=== PATIENT | female | born 1980 | race Caucasian/White ===

== ENCOUNTER 2022-09-28 09:25 | Emergency (ER) | payer BC, OTHER ==
--- OUTSIDE RECORDS SUMMARY | 2022-09-28 09:29 | XMS REPORT | Continuity of Care Document ---
:1980 Author Organization [facility] t Address [address] [place] [address] Care Team Providers Name Role Phone Philippe Goins MD Primary Care Physician Arlette Nieves Attending Clinician Unavailable Lab, Adc Fam Pob I Attending Clinician Unavailable Eva Sanchez Attending Clinician EVA MURPHY Attending Clinician Unavailable Arlette Nieves Admitting Clinician Unavailable Physician, No Primary or Family Admitting Clinician Unavaila ble Payers Payer Name Policy Type Policy Number Effective Date Expiration Date S ource Problems This patient has no known problems. Allergies, Adverse Reactions, Alerts Allergy Allergy Status Severity Reaction(s) Onset Inactive Treating Comm ents Source Name Type Date Date Clinician NO KNOWN Drug Active Univers [facility]GIE [facility] Family History Family Member Diagnosis Comments Start Date Stop Date Source Maternal aunt [facility] Maternal aunt Heart disease [facility] Maternal grandmother Diabetes [facility] Maternal grandmother Heart disease [facility] Maternal grandmother Hypertension [facility] Natural mother Hypertension [facility] Natural sister Thyroid disease [facility] Social History Social Habit Start Date Stop Date Quantity Comments Source Exposure to Yes [facility]-CoV-2 [facility] (event) Branch Alcohol intake 2017-06-12 2017-06-12 Current [facility] 00:00:00 00:00:00 non-drinker of alcohol (finding) Tobacco use and 2017-05-15 2017-05-15 Smokeless tobacco [facility] exposure 00:00:00 00:00:00 non-user Sex Assigned At [birth year] [facility] 00:00:00 00:00:00 Smoking Status Start Date Stop Date Source Unknown if ever smoked [facility] Never smoked tobacco [facility] ospital Medications Ordered Filled Start Stop Current Ordering Indication Dosage Frequency Signature Comments Components Source Medication Medication Date Date Medication? Clinician (SIG) Name Name amoxicillin Yes TK 1 T PO M ethodi -pot 05-[address] clavulanate 00:00: Hospit a (AUGMENTIN) 00 l 875-125 mg per tablet sertraline Yes TK 1 T PO Me thodi (ZOLOFT) [address] 100 MG 00:00: Hospita tablet 00 l zolpidem Yes TK 1 T PO Meth kerri (AMBIEN) 10 8-[address] mg tablet 00:00: Hospita 00 l Procedures This patient has no known procedures. Plan of Care Planned Activity Planned Date Details Comments Source Future Scheduled 2022-08-20 COVID-19 VACCINE [facility] Test 15:59:25 (#1) [code = COVID-19 VACCINE (#1)] Future Scheduled 2022-08-20 Screening for [facility] Test 15:59:25 malignant neoplasm of cervix (procedure) [code = 212739401] Future Scheduled 2022-08-20 BREAST CANCER [facility] Test 15:59:25 SCREENING [code = BREAST CANCER SCREENING] Future Scheduled 2022-08-20 INFLUENZA VACCINE [facility] Test 15:59:25 [code = INFLUENZA VACCINE] Encounters Start End Encounter Admission Attending Care Care Encounter Source Date/Time Date/Time Type Type Clinicians Facility Department ID 2022-02-11 2022-02-11 Outpatient RAIN Calhoun DELORES [id number] [facility] 12:00:00 12:00:[address] [place] [address] 2020-11-20 2020-11-20 Outpatient DANE Calhoun DELORES [id number] [facility] 12:00:00 12:00:00 Arlette 84 [facility] 2020-08-09 2020-08-09 Laboratory Lab, [facility] [id number] 15:31:17 15:51:17 Only Fam Pob I Health [id number] [place] [id number] Professio [phone] [place] [address] Office Building [facility] 2020-08-09 2020-08-09 Laboratory Lab, [facility] Fam Pob I [facility] [id number] [facility] 15:31:17 15:51:17 Only Katherine [facility] [id number] ity of [place] [id number] Ever as Professio [phone] Nh dical [address] Office Building [facility] 2020-08-09 2020-08-09 Outpatient Kiersten KATHERINE [facility] [id number] [facility] 15:20:00 15:20:00 EVA ity of [facility] 2019-11-07 2019-11-07 Outpatient RAIN Calhoun DELORES [id number] [facility] 12:00:00 12:00:00 Arlette 07 [facility] Results This patient has no known results.
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
[2022-09-28] MEDS ORDERED: IBUPROFEN 200 MG TAB PO ONE (10:43)
[2022-09-28] MEDS ORDERED: CYCLOBENZAPRINE 10 MG TAB ONE (10:43)
[2022-09-28 11:07] VITALS: TEMP 97.9; O2SAT 100
[2022-09-28 11:08] VITALS: BP 120/80
== END 2022-09-28 10:47 | disposition home or self-care (01) ==
LOC: ER 09:25
DX: R51.9 Headache, unspecified (principal); S16.1XXA Strain of muscle, fascia and tendon at neck level, initial encounter; V49.49XA Driver injured in collision with other motor vehicles in traffic accident, initial encounter
CPT/HCPCS: 70450; 72125

== ENCOUNTER 2022-10-25 04:43 | Emergency (ER) | payer BC, OTHER ==
--- OUTSIDE RECORDS SUMMARY | 2022-10-25 04:46 | XMS REPORT | Continuity of Care Document ---
:[address] [facility] t Address [address] [facility] [address] [place] [address] Care Team Providers Name Role Phone Philippe Goins MD Primary Care Physician Arlette Nieves Attending Clinician Unavailable Lab, Adc Fam Pob I Attending Clinician Unavailable Naomi Sanchez Attending Clinician NAOMI MURPHY Attending Clinician Unavailable Arlette Nieves Admitting [...] Date Stop Date Source Maternal [facility] Maternal aunt Heart disease [facility] Maternal grandmother Diabetes [facility] Maternal grandmother Heart disease [facility] Maternal grandmother Hypertension [facility] Natural mother Hypertension [facility] Natural sister Thyroid disease [facility] Social History Social Habit Start Date Stop Date Quantity Comments Source Exposure to [facility] SARS-CoV-2 [facility] (event) Branch Alcohol intake 2017-06-12 2017-06-12 Current [facility] 00:00:00 00:00:00 non-drinker of alcohol (finding) Tobacco use and 2017-05-15 2017-05-15 Smokeless tobacco [facility] exposure 00:00:00 00:00:00 non-user Sex Assigned At [birth year] [facility] 00:00:00 00:00:00 Smoking Status Start Date Stop Date Source Unknown if ever smoked [facility] Never smoked tobacco [facility] ospital Medications Ordered Filled Start Stop Current Ordering Indication Dosage Frequency Signature Comments Components Source Medication Medication Date Date Medication? Clinician (SIG) Name Name amoxicillin Yes TK 1 T PO M ethodi -pot 9-[address] clavulanate 00:00: Hospit a (AUGMENTIN) 00 l 875-125 mg per tablet amoxicillin Yes TK 1 T PO M ethodi -pot 9-[address] clavulanate 00:00: Hospit a (AUGMENTIN) 00 l 875-125 mg per tablet sertraline Yes TK 1 T PO Me thodi (ZOLOFT) 8-[address] 100 MG 00:00: Hospita tablet 00 l zolpidem Yes TK 1 T PO Meth kerri (AMBIEN) 10 8-[address] mg tablet 00:00: Hospita 00 l sertraline Yes TK 1 T PO Me thodi (ZOLOFT) 8-[address] 100 MG 00:00: Hospita tablet 00 l zolpidem Yes TK 1 T PO Meth kerri (AMBIEN) 10 8-[address] mg tablet 00:00: Hospita 00 l Procedures This patient has no known procedures. Plan of Care Planned Activity Planned Date Details Comments Source Future Scheduled 2022-08-20 COVID-19 VACCINE [facility] Test 15:59:25 (#1) [code = COVID-19 VACCINE (#1)] Future Scheduled 2022-08-20 Screening for [facility] Test 15:59:25 malignant neoplasm of cervix (procedure) [code = [id number]] Future Scheduled 2022-08-20 BREAST CANCER [facility] Test 15:59:25 SCREENING [code = BREAST CANCER SCREENING] Future Scheduled 2022-08-20 INFLU[facility]ZA [facility]ACCINE [facility] 15:59:25 [code = INFLUENZA VACCINE] Future Scheduled 2022-08-20 [facility] Test 15:59:25 (#1) [code = COVID-19 VACCINE (#1)] Future Scheduled 2022-08-20 Screening for [facility] Test 15:59:25 malignant neoplasm of cervix (procedure) [code = 699475941] Future Scheduled 2022-08-20 BREAST CANCER [facility] Test 15:59:25 SCREENING [code = BREAST CANCER SCREENING] Future Scheduled 2022-08-20 INFLUENZA VACCINE [facility] Test 15:59:25 [code = INFLUENZA VACCINE] Encounters Start End Encounter Admission Attending Care Care Encounter Source Date/Time Date/Time Type Type Clinicians Facility Department ID 2022-02-11 2022-02-11 Outpatient MACARENA NievesDANE [id number] [facility] 12:00:00 12:00:00 Arlette 26 [facility] 2020-11-20 2020-11-20 Outpatient MACARENA Nieves [facility] DELORES [id number] [facility] 12:00:00 12:00:00 Arlette 84 [facility] 2020-08-09 2020-08-09 Laboratory Lab, [facility] [id number] 15:31:17 15:51:17 Only Fam Pob I Health [id number] [place] [id number] Professio [phone] [place] [address] Office Building [facility] 2020-08-09 2020-08-09 Laboratory Lab, [facility] Fam Pob I [facility] [id number] [facility] 15:31:17 15:51:17 Only Green, Na[facility] Health [id number] ity of [place] [id number] Ever as Professio [phone] [address] Office Building One 2020-08-09 2020-08-09 Outpatient R KATHERINE [facility] [id number] [facility] 15:20:00 15:20:00 NAOMI ity [facility] 2019-11-07 2019-11-07 Outpatient EL RAIN Nieves DELORES [id number] [facility] 12:00:00 12:00:00 Arlette 07 [facility] Results This patient has no known results.
[2022-10-25 05:53] LABS: Absolute Lymphocytes (CBC) 1.8 K/uL (0.7-4.9); Hematocrit 34.9 % (36.0-45.0); MCV 86.4 fL (80-100); MPV 6.7 fL (7.6-11.3); RBC Red Blood Cell Count 4.04 M/uL (3.86-4.86)
[2022-10-25 06:11] LABS: Albumin 4.2 g/dL (3.4-5.0); Bilirubin Total 0.5 mg/dL (0.2-1.0); Potassium 3.6 mmol/L (3.5-5.1); Protein, Total 7.7 g/dL (6.4-8.2)
--- NOTE | 2022-10-25 06:32 | ER ---
Nurse's Notes [facility] Name: Kelly Mendieta Age: 42 yrs Sex: Female : 1980 Arrival Date: 10/25/2022 Time: 04:45 Bed 16 Private MD: Diagnosis: Gastro-esophageal reflux disease without esophagitis Presentation: 10/25 04:48 Chief complaint: Patient states: I woke up at around 2:30 with pain between my shoulder kd3 blades that goes off mostly to the right side. I started to vomit. I am not sure if the two things are related. I no longer feel nauseous but the pain on the right shoulder blade is about a 4/10 and dull achy right now and about a 7/10 and sharp at its worst. Coronavirus screen: Vaccine status: Patient reports receiving the 2nd dose of the covid vaccine. Ebola Screen: No symptoms or risks identified at this time. Initial Sepsis Screen: Does the patient meet any 2 criteria? No. Patient's initial sepsis screen is negative. Does the patient have a suspected source of infection? No. Patient's initial sepsis screen is negative. Risk Assessment: Do you want to hurt yourself or someone else? Patient reports no desire to harm self or others. Onset of symptoms was October 25, 2022. 04:48 Method Of Arrival: Ambulatory kd3 04:48 Acuity: JESSE 3 kd3 Triage Assessment: 04:51 General: Appears uncomfortable, Behavior is calm, cooperative. Pain: Complains of pain kd3 in right scapular area and thoracic area. Neuro: Level of Consciousness is awake, alert, obeys commands, Oriented to person, place, time, situation. GI: Reports nausea, vomiting. 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 - Social history:: Smoking status: Patient denies any tobacco usage or history of. Screenin:51 [facility] ED Fall Risk Assessment (Adult) History of falling in the last 3 months, aa9 including since admission No falls in past 3 months (0 pts) Confusion or Disorientation No (0 pts) Intoxicated or Sedated No (0 pts) Impaired Gait No (0 pts) Mobility Assist Device Used No (0 pt) Altered Elimination No (0 pt) Score/Fall Risk Level 0 - 2 = Low Risk Oriented to surroundings, Maintained a safe environment. Abuse screen: Denies threats or abuse. Denies injuries from another. Nutritional screening: Has had N/V for 3 or more days. Tuberculosis screening: No symptoms or risk factors identified. Assessment: 05:00 Reassessment: Patient appears in no apparent distress at this time. Patient is alert, aa9 oriented x 3, equal unlabored respirations, skin warm/dry/pink. GI: Reports nausea, vomiting. 05:00 General: Appears in no apparent distress. comfortable, Behavior is calm, cooperative. aa9 Cardiovascular: Patient's skin is warm and dry. Respiratory: Airway is patent Respiratory effort is even, unlabored. 06:45 Reassessment: Patient appears in no apparent distress at this time. Patient and/or aa9 family updated on plan of care and expected duration. Pain level reassessed. Patient is alert, oriented x 3, equal unlabored respirations, skin warm/dry/pink. Vital Signs: 04:48 BP 114 / 58; Pulse 75; Resp 19; Temp 97.9; Pulse Ox 100% on R/A; Weight 72.57 kg; kd3 Height 5 ft. 8 in. (172.72 cm); 04:52 Pain 4/10; kd3 06:44 BP 115 / 73; Pulse 71; Resp 16; Pulse Ox 99% on R/A; aa9 04:48 Body Mass Index 24.33 (72.57 kg, 172.72 cm) kd3 ED Course: 04:45 Patient arrived in ED. ag3 04:51 Triage completed. kd3 04:55 Arm band placed on left wrist. kd3 04:56 Lakshmi Dumas, LOLY is Primary Nurse. aa9 05:29 Lauri Lopez MD is Attending Physician. sp3 05:47 Lipase Sent. aa9 05:47 CBC with Diff Sent. aa9 05:50 CMP Sent. aa9 05:57 Chest Single View XRAY In Process Unspecified. EDMS 06:44 No provider procedures requiring assistance completed. Patient did not have IV access aa9 during this emergency room visit. 06:45 Patient has correct armband on for positive identification. Bed in low position. Side aa9 rails up X2. Adult w/ patient. Administered Medications: No medications were administered Medication: 06:44 VIS not applicable for this client. aa9 Outcome: 06:31 Discharge ordered by . sp3 06:44 Discharged to home ambulatory, with family. aa9 06:44 Condition: stable 06:44 Discharge instructions given to patient, Instructed on discharge instructions, follow up and referral plans. Demonstrated understanding of instructions, follow-up care. 06:45 Patient left the ED. aa9 Signatures: Dispatcher [employer] EDMariajose Rubin 3 Lauri Lopez MD MD sp3 María Go RN RN kd3 Lakshmi Dumas, LOLY RN aa9 Corrections: (The following items were deleted from the chart) 04:55 04:48 Chief complaint: Patient states: I woke up at around 3:30 with right shoulder kd3 pain and I couldn't stop vomiting. kd3
--- NOTE | 2022-10-25 06:32 | EDPHYS ---
Physician Documentation [facility] Name: Kelly Mendieta Age: 42 yrs Sex: Female : 1980 Arrival Date: 10/25/2022 Time: 04:45 Bed 16 Private MD: ED Physician Lauri Lopez HPI: 10/25 05:58 This 42 yrs old Female presents to ER via Ambulatory with complaints of Shoulder Pain, sp3 Vomiting. 05:58 42-year-old female with no significant past medical history presents with chief sp3 complaint right. Shoulder/scapula pain started after episode of nausea and gastritis yesterday evening. Patient states that she had some fatty/spicy food and had to take Rolaids for her symptoms which are now resolved however she is has some mild pain emanating from her scapular area for which she is concerned and presents to the ED. One of her concerns is possible biliary pathology including cholecystitis. She denies any difficulty breathing, anterior chest pain, prior cardiac history, left-sided chest pain, left arm pain, left jaw pain, epigastric pain, continued nausea, syncope, near syncope, fever, URI symptoms, any other aspect of ROS at this time.. 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 - Social history:: Smoking status: Patient denies any tobacco usage or history of. ROS: 06:00 Constitutional: Negative for fever, chills, and weight loss, Eyes: Negative for injury, sp3 pain, redness, and discharge, ENT: Negative for injury, pain, and discharge, Neck: Negative for injury, pain, and swelling, Cardiovascular: Negative for chest pain, palpitations, and edema, Respiratory: Negative for shortness of breath, cough, wheezing, and pleuritic chest pain, Back: Negative for injury and pain, MS/Extremity: Negative for injury and deformity, Skin: Negative for injury, rash, and discoloration, Neuro: Negative for headache, weakness, numbness, tingling, and seizure, Psych: Negative for depression, anxiety, suicide ideation, homicidal ideation, and hallucinations, Allergy/Immunology: Negative for hives, rash, and allergies, Endocrine: Negative for neck swelling, polydipsia, polyuria, polyphagia, and marked weight changes, Hematologic/Lymphatic: Negative for swollen nodes, abnormal bleeding, and unusual bruising. 06:00 All other systems are negative. Exam: 06:00 Constitutional: This is a well developed, well nourished patient who is awake, alert, sp3 and in no acute distress. Head/Face: Normocephalic, atraumatic. Eyes: Pupils equal round and reactive to light, extra-ocular motions intact. Lids and lashes normal. Conjunctiva and sclera are non-icteric and not injected. Cornea within normal limits. Periorbital areas with no swelling, redness, or edema. Neck: Trachea midline, no thyromegaly or masses palpated, and no cervical lymphadenopathy. Supple, full range of motion without nuchal rigidity, or vertebral point tenderness. No Meningismus. Chest/axilla: Normal chest wall appearance and motion. Nontender with no deformity. No lesions are appreciated. Cardiovascular: Regular rate and rhythm with a normal S1 and S2. No gallops, murmurs, or rubs. Normal PMI, no JVD. No pulse deficits. Respiratory: Lungs have equal breath sounds bilaterally, clear to auscultation and percussion. No rales, rhonchi or wheezes noted. No increased work of breathing, no retractions or nasal flaring. Abdomen/GI: Soft, non-tender, with normal bowel sounds. No distension or tympany. No guarding or rebound. No evidence of tenderness throughout. Back: No spinal tenderness. No costovertebral tenderness. Full range of motion. Skin: Warm, dry with normal turgor. Normal color with no rashes, no lesions, and no evidence of cellulitis. MS/ Extremity: Pulses equal, no cyanosis. Neurovascular intact. Full, normal range of motion. Neuro: Awake and alert, GCS 15, oriented to person, place, time, and situation. Cranial nerves II-XII grossly intact. Motor strength 5/5 in all extremities. Sensory grossly intact. Cerebellar exam normal. Normal gait. Psych: Awake, alert, with orientation to person, place and time. Behavior, mood, and affect are within normal limits. 06:28 ECG was reviewed by the Attending Physician. EKG demonstrates normal sinus rhythm at 70 sp3 bpm with normal intervals, normal QRS, normal axis with poor R wave progression in precordial leads V3 normal ST/T-segment without evidence of acute ischemia. Vital Signs: 04:48 BP 114 / 58; Pulse 75; Resp 19; Temp 97.9; Pulse Ox 100% on R/A; Weight 72.57 kg; kd3 Height 5 ft. 8 in. (172.72 cm); 04:52 Pain 4/10; kd3 06:44 BP 115 / 73; Pulse 71; Resp 16; Pulse Ox 99% on R/A; aa9 04:48 Body Mass Index 24.33 (72.57 kg, 172.72 cm) kd3 MDM: 05:58 Patient medically screened. sp3 06:04 Data reviewed: vital signs, nurses notes, lab test result(s), radiologic studies. ED sp3 course: 42-year-old female with right scapular pain. Differential diagnosis is broad but I do not believe includes any critical pathologies. Consider gastritis/periesophageal pain, referred pain from biliary disease, musculoskeletal pain, among others. Clinically I am not highly suspicious for acute coronary syndrome, pulmonary embolism, aortic dissection or aneurysm, pneumonia, pneumothorax, or any other concerning findings. Work-up will include x-ray and routine labs including lipase and biliary function test. Again I do not believe this is cardiac in origin given presentation and history.. 06:30 ED course: I reviewed chest x-ray imaging myself which demonstrates no acute sp3 abnormality, as well as EKG and laboratory values which are also normal. I will reassure patient and discharge her to PCP follow-up as needed.. 10/25 05:39 Order name: CBC with Diff; Complete Time: 06:29 aa9 10/25 05:39 Order name: Lipase; Complete Time: 06:29 aa9 10/25 05:39 Order name: Chest Single View XRAY aa9 10/25 05:50 Order name: CMP sp3 10/25 05:54 Order name: Comprehensive Metabolic Panel; Complete Time: 06:29 EDMS 10/25 06:06 Order name: EKG - Nurse/Tech; Complete Time: 06:37 sp3 Administered Medications: No medications were administered Disposition Summary: 10/25/22 06:31 Discharge Ordered Location: Home sp3 Condition: Stable sp3 Diagnosis - Gastro-esophageal reflux disease without esophagitis sp3 Followup: sp3 - With: Private Physician - When: Upon discharge from the Emergency Department - Reason: Continuance of care Discharge Instructions: - Discharge Summary Sheet sp3 - Indigestion sp3 Forms: - Medication Reconciliation Form sp3 - Thank You Letter sp3 - Antibiotic Education sp3 - Prescription Opioid Use sp3 Signatures: Dispatcher [employer] EDLauri Montez MD MD sp3 María Go RN RN kd3
[2022-10-25 06:50] VITALS: TEMP 97.9
[2022-10-25 06:52] VITALS: BP 115/73; O2SAT 99
--- NOTE | 2022-10-25 11:32 | RAD REPORT ---
EXAM DESCRIPTION: RAD - Chest Single View - 10/25/2022 5:55 am CLINICAL HISTORY: 42 years Female PAIN COMPARISON: None FINDINGS: Lung volumes adequate. Cardiac silhouette is normal. No pneumothorax. No large pleural effusion. No focal consolidation. No acute bony finding. IMPRESSION: No acute cardiopulmonary findings. Electronically signed by: Tresa Otero MD 10/25/2022 6:07 AM DRUG ABUSE TREATMENT SPECIALIST Due to temporary technical issues with the PACS/Fluency reporting system, reports are being signed by the in house radiologists without review as a courtesy to insure prompt reporting. The interpreting radiologist is fully responsible for the content of the report.
--- NOTE | 2022-10-25 12:49 | EKG ---
Test Date: 2022-10-25 Test Time: 06:20:39 Health Plan Specialist: GARETH MEASUREMENT RESULTS: Intervals: Rate: 70 IA: 128 QRSD: 98 QT: 450 QTc: 486 [place]: P: 30 IA: 128 QRS: 60 T: 53 INTERPRETIVE STATEMENTS: Normal sinus rhythm Prolonged QT Abnormal ECG No previous ECG available for comparison Electronically Signed On 10-25-22 12:48:42 MATERIALS AND CORROSION ENGINEER by Gera House
== END 2022-10-25 06:45 | disposition home or self-care (01) ==
LOC: ER 04:43
DX: K21.9 Gastro-esophageal reflux disease without esophagitis (principal)
CPT/HCPCS: 36415; 71045; 80053; 83690; 85025; 93005; 99283

== ENCOUNTER 2024-12-31 19:14 | Emergency (ER) | payer BC ==
[2024-12-31 20:30] LABS: Absolute Basophils 0.1 K/uL (0-0.5); Absolute Lymphocytes (CBC) 1.6 K/uL (0.7-4.9); Absolute Monocytes 0.6 K/uL (0.1-1.3); Absolute Neutrophil 11.4 K/uL (1.8-8.0); Basophils % 0.4 % (0-1.3); Eosinophils % 0.2 % (0-4.4); Hematocrit 40.9 % (36.0-45.0); Hemoglobin 14.5 g/dL (12.0-15.0); Lymphocytes % 11.9 % (15.3-44.8); MCH 30.7 pg (27.0-35.0); MCHC 35.5 g/dL (32.0-36.0); MCV 86.5 fL (80-100); MPV 7.2 fL (7.6-11.3); Monocytes % 4.7 % (3.3-12.3); Neutrophils % 82.8 % (41.7-73.7); Platelets 323 thou/uL (152-406); RBC Red Blood Cell Count 4.73 M/uL (3.86-4.86); Red Cell Distribution Width 13.2 % (12.1-15.2)
[2024-12-31] MEDS ORDERED: ONDANSETRON 4 MG/2 ML VIAL ONE (20:42)
[2024-12-31] MEDS ORDERED: FAMOTIDINE 20 MG/2 ML VIAL IV ONE (20:42)
[2024-12-31] MEDS ORDERED: NA CHLORIDE 0.9% 1,000 ML ONE (20:42)
[2024-12-31 20:47] LABS: Albumin 4.5 g/dL (3.4-5.0); Albumin/Globulin Ratio 1.1 (1.1-1.8); Anion Gap 15.7 mEq/L (5.0-15.0); Bilirubin Total 0.9 mg/dL (0.2-1.0); Globulin 4.2 g/dL (2.3-3.5); Potassium 3.7 mEq/L (3.5-5.1); Protein, Total 8.7 g/dL (6.4-8.2)
--- NOTE | 2024-12-31 21:32 | EDPHYS ---
Physician Documentation [facility] Name: Kelly Mendieta Age: 44 yrs Sex: Female : 1980 Arrival Date: 12/31/2024 Time: 19:14 Bed 14 Private MD: ED Physician Vel Tucker HPI: 12/31 21:49 This 44 yrs old Female presents to ER via Ambulatory with complaints of Nausea/Vomiting.kb 21:49 Patient is a 44-year-old female who presents for nausea and vomiting that started kb yesterday. States she has been unable to tolerate anything by mouth. States she took a shot of semaglutide for the first time in symptoms started after that. Denies diarrhea, abdominal pain, fever. 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 - Infectious Disease History:: Denies. - Social history:: Smoking status: Patient denies any tobacco usage or history of. ROS: 21:48 Constitutional: As per HPI kb Exam: 21:48 Constitutional: This is a well developed, well nourished patient who is awake, alert, kb and in no acute distress. Head/Face: Normocephalic, atraumatic. ENT: Moist Mucous membranes Cardiovascular: Regular rate Respiratory: Respirations even and unlabored. No increased work of breathing. Talking in full sentences Abdomen/GI: Soft, non-tender. No distention Skin: Warm, dry with normal turgor. Normal color. MS/ Extremity: Pulses equal, no cyanosis. Neurovascular intact. Full, normal range of motion. Neuro: Awake and alert, GCS 15, oriented to person, place, time, and situation. Vital Signs: 19:25 BP 145 / 73; Pulse 118; Resp 18; Temp 98.2; Pulse Ox 99% ; Weight 68.04 kg; Height 5 cp4 ft. 8 in. ; Pain 0/10; 20:20 BP 136 / 68; Pulse 100; Resp 18; Pulse Ox 100% ; rg5 21:31 BP 118 / 61; Pulse 95; Resp 18; Pulse Ox 100% ; rg5 19:25 Body Mass Index 22.81 (68.04 kg, 172.72 cm) cp4 19:25 Pain Scale: Adult cp4 MDM: 19:25 Medical Screening Exam initiated kb 21:48 Differential diagnosis: abnormal electrolytes, dehydration, adverse drug reaction. Data kb reviewed: vital signs, nurses notes. Test considered but Not performed: CT: ct abd considered but pt has no abd tenderness or pain. Counseling: I had a detailed discussion with the patient and/or guardian regarding the historical points, exam findings, and any diagnostic results supporting the discharge/admit diagnosis, lab results, the need for outpatient follow up, a family practitioner, to return to the emergency department if symptoms worsen or persist or if there are any questions or concerns that arise at home. 21:50 ED course: Patient feeling better after treatment, tolerating p.o. intake.. kb 12/31 19:31 Order name: CBC with Diff; Complete Time: 20:43 kb 12/31 19:31 Order name: CMP; Complete Time: 21:12 kb 12/31 19:31 Order name: Lipase; Complete Time: 21:12 kb 12/31 19:31 Order name: IV Saline Lock; Complete Time: 20:21 kb 12/31 19:31 Order name: Labs collected and sent; Complete Time: 20:22 kb 12/31 21:13 Order name: PO challenge; Complete Time: 21:33 kb Administered Medications: 20:50 Drug: Famotidine IVP 20 mg IVP once; dilute with 10 mL 0.9% NaCl; give over 2 minutes ha1 Route: IVP; Site: right antecubital; 21:21 Follow up: Response: No adverse reaction rg5 20:50 Drug: NS 0.9% IV 1000 ml IV at 1 bolus Per protocol; to be given as a bolus over 60 ha1 minutes Route: IV; Rate: 1 bolus; Site: right antecubital; 21:30 Follow up: IV Status: Completed infusion; IV Intake: 1000ml rg5 20:52 Drug: Ondansetron IVP 4 mg IVP once; over 2 minutes Route: IVP; Site: right antecubital;ha1 21:20 Follow up: Response: No adverse reaction rg5 Disposition Summary: 12/31/24 21:32 Discharge Ordered Notes: Location: Home kb Condition: Stable kb Diagnosis - Nausea with vomiting, unspecified kb Followup: kb - With: Emergency Department - When: As needed - Reason: Worsening of condition Followup: kb - With: Private Physician - When: 2 - 3 days - Reason: Recheck today's complaints, Continuance of care, Re-evaluation by your physician Discharge Instructions: - Discharge Summary Sheet kb - Nausea and Vomiting, Adult, [id number] kb Forms: - Medication Reconciliation Form kb - Antibiotic Education kb - Prescription Opioid Use kb - Patient Portal Instructions kb - Leadership Thank You Letter kb Prescriptions: - ondansetron 4 mg Oral Tablet,disintegrating - take 1 tablet ORAL route every 6 hours As needed; 20 tablet; Refills: 0, kb Product Selection Permitted Signatures: Dispatcher [employer] EDMS Sharon Parker, CLASSROOM PARAPROFESSIONAL-C CLASSROOM PARAPROFESSIONAL-Kerri Ba, RN RN ha1 Ronda Batista cp4 Oleg Gonzalez RN rg5
--- NOTE | 2024-12-31 21:32 | ER ---
Nurse's Notes [facility] Name: Kelly Mendieta Age: 44 yrs Sex: Female : 1980 Arrival Date: 12/31/2024 Time: 19:14 Bed 14 Private MD: Diagnosis: Nausea with vomiting, unspecified Presentation: 12/31 19:25 Chief complaint: Patient states: took zepbound that was not prescribed to her and has cp4 been vomiting nonstop since. Coronavirus screen: Client denies travel out of the [place] in the last 14 days. At this time, the client does not indicate any symptoms associated with coronavirus-19. Ebola Screen: Patient negative for fever greater than or equal to 101.5 degrees Fahrenheit, and additional compatible Ebola Virus Disease symptoms Patient denies exposure to infectious person. Patient denies travel to an Ebola-affected area in the 21 days before illness onset. No symptoms or risks identified at this time. Initial Sepsis Screen: Does the patient meet any 2 criteria? No. Patient's initial sepsis screen is negative. Does the patient have a suspected source of infection? No. Patient's initial sepsis screen is negative. Risk Assessment: Do you want to hurt yourself or someone else? Patient reports no desire to harm self or others. Onset of symptoms was December 30, 2024. 19:25 Method Of Arrival: Ambulatory cp4 19:25 Acuity: JESSE 3 cp4 Triage Assessment: 19:28 General: Appears in no apparent distress. uncomfortable, Behavior is calm, cooperative, cp4 appropriate for age. Pain: Denies pain. GI: Reports nausea, vomiting. 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 - Infectious Disease History:: Denies. - Social history:: Smoking status: Patient denies any tobacco usage or history of. Screenin:20 [facility] ED Fall Risk Assessment (Adult) History of falling in the last 3 months, rg5 including since admission No falls in past 3 months (0 pts) Confusion or Disorientation No (0 pts) Intoxicated or Sedated No (0 pts) Impaired Gait No (0 pts) Mobility Assist Device Used No (0 pt) Altered Elimination No (0 pt) Score/Fall Risk Level 0 - 2 = Low Risk Oriented to surroundings, Maintained a safe environment, Hourly rounding (assess needs \T\ fall precautionary measures) done. Abuse screen: Denies threats or abuse. Nutritional screening: No deficits noted. Tuberculosis screening: No symptoms or risk factors identified. Assessment: 19:30 General: Appears in no apparent distress. comfortable, Behavior is calm, cooperative, rg5 appropriate for age. 19:30 Neuro: Level of Consciousness is awake, alert, obeys commands, Oriented to person, rg5 place, time, situation. Cardiovascular: Denies chest pain, Patient's skin is warm and dry. Rhythm is regular. Respiratory: Airway is patent Trachea midline Respiratory effort is even, unlabored, Respiratory pattern is regular, symmetrical. GI: Abdomen is flat, non-distended, Abd is soft and non tender Reports nausea, vomiting. : No signs and/or symptoms were reported regarding the genitourinary system. EENT: No deficits noted. Derm: Skin is intact, Skin is dry, Skin is normal, Skin temperature is warm. Musculoskeletal: Circulation, motion, and sensation intact. Range of motion: intact in all extremities. 20:30 Reassessment: No changes from previously documented assessment. Patient and/or family rg5 updated on plan of care and expected duration. Pain level reassessed. Patient is alert, oriented x 3, equal unlabored respirations, skin warm/dry/pink. 21:32 Reassessment: Patient and/or family updated on plan of care and expected duration. Pain rg5 level reassessed. Patient is alert, oriented x 3, equal unlabored respirations, skin warm/dry/pink. Patient states symptoms have improved. Vital Signs: 19:25 BP 145 / 73; Pulse 118; Resp 18; Temp 98.2; Pulse Ox 99% ; Weight 68.04 kg; Height 5 cp4 ft. 8 in. ; Pain 0/10; 20:20 BP 136 / 68; Pulse 100; Resp 18; Pulse Ox 100% ; rg5 21:31 BP 118 / 61; Pulse 95; Resp 18; Pulse Ox 100% ; rg5 19:25 Body Mass Index 22.81 (68.04 kg, 172.72 cm) cp4 19:25 Pain Scale: Adult cp4 ED Course: 19:21 Patient arrived in ED. gm2 19:25 [facility] Parker [facility]-C [facility]. kb 19:25 Vel Tucker MD is Attending Physician. kb 19:28 Triage completed. cp4 19:28 Arm band placed on right wrist. Patient placed in waiting room. cp4 20:13 Oleg Gonzalez, LOLY is Primary Nurse. rg5 20:20 Patient has correct armband on for positive identification. Bed in low position. Side rg5 rails up X 1. Door closed. Noise minimized. 20:20 No provider procedures requiring assistance completed. Inserted saline lock: 20 gauge rg5 in right antecubital area, using aseptic technique. Blood collected. Flushed with 10 mL NS. 21:48 IV discontinued, bleeding controlled, No redness/swelling at site. Pressure dressing rg5 applied. 21:49 Provided Education on: post er care. rg5 Administered Medications: 20:50 Drug: Famotidine IVP 20 mg IVP once; dilute with 10 mL 0.9% NaCl; give over 2 minutes ha1 Route: IVP; Site: right antecubital; 21:21 Follow up: Response: No adverse reaction rg5 20:50 Drug: NS 0.9% IV 1000 ml IV at 1 bolus Per protocol; to be given as a bolus over 60 ha1 minutes Route: IV; Rate: 1 bolus; Site: right antecubital; 21:30 Follow up: IV Status: Completed infusion; IV Intake: 1000ml rg5 20:52 Drug: Ondansetron IVP 4 mg IVP once; over 2 minutes Route: IVP; Site: right antecubital;ha1 21:20 Follow up: Response: No adverse reaction rg5 Medication: 20:20 VIS not applicable for this client. rg5 Intake: 21:30 IV: 1000ml; Total: 1000ml. rg5 Outcome: 21:32 Discharge ordered by . kb 21:48 Discharged to home ambulatory, rg5 21:48 Condition: stable 21:48 Discharge instructions given to patient, Instructed on discharge instructions, Demonstrated understanding of instructions, follow-up care, medications, Prescriptions given X 1, 21:49 Patient left the ED. rg5 Signatures: Sharon Parker FNP-C FNP-Kerri Ba RN RN ha1 Ronda Batista cp4 Nika Perez gm2 Oleg Gonzalez, RN RN rg5
[2025-01-01 05:32] VITALS: TEMP 98.2
[2025-01-01 05:34] VITALS: O2SAT 100
[2025-01-01 05:36] VITALS: BP 118/61
== END 2024-12-31 21:49 | disposition home or self-care (01) ==
LOC: ER 19:14
DX: R11.2 Nausea with vomiting, unspecified (principal)
CPT/HCPCS: 96361; 85025; 36415; 83690; 80053; 96375; 96374; 99284; J2405; J7030